=== PATIENT | female | born 1945 | race Caucasian/White ===

== ENCOUNTER → 2016-09-11 | Outpatient (REF) ==
[~2016-09-11] MED LIST: ALPR2TAB3 PO; ASPI81TA83 OR; ATOR40TA PO; BUPR10TASR PO; CLON0.5T OR; CLON0.5T PO; COGE1INJ OR; GLUC1000 OR; KLON0.5T PO; LAMI25TA OR; LASI40TA OR; LEVO137T2 PO; LISI10TA4 OR; LITH150C PO; LITH300C PO; LITH300T2 OR; MIRT15TA3 PO; QUET30XR PO; SERO1TAB3 PO; SERO200T OR; SERO50TA PO; SIMV80TA OR; SPIR25TA2 PO; SYNT125T OR; TRAZ150T OR; VIST25CA PO; ZYPR5TAB2 PO
== END ==
LOC: M LAB REF 17:26
DX: Z79.899 Other long term (current) drug therapy (principal)

== ENCOUNTER → 2017-04-27 | Outpatient (REF) ==
[~2017-04-27] MED LIST changes: -ATOR40TA PO; +ATOR40TA75 PO
== END ==
LOC: M LAB LCGH 19:07
PROVIDERS: ATTEND Emergency Medicine
DX: Z79.899 Other long term (current) drug therapy (principal)

== ENCOUNTER → 2017-05-25 | Outpatient (REF) | LOC: M LAB REF 11:09 | DX: Z51.81 Encounter for therapeutic drug level monitoring (principal) ==

== ENCOUNTER 2017-08-15 12:13 | Emergency (ER) | payer OTHER ==
[2017-08-15 13:06] LABS: HEMATOCRIT 43.9 % (36.0-47.0); HEMOGLOBIN 14.1 g/dl (12.0-16.0); MEAN CORPUSCULAR HEMOGLOBIN 29.4 pg (27.0-33.0); MEAN CORPUSCULAR HGB CONC 32.1 g/dl (32.0-36.5); MEAN CORPUSCULAR VOLUME 91.6 fl (80.0-96.0); PLATELET COUNT, AUTOMATED 323 10^3/uL (150-450); RED BLOOD COUNT 4.79 10^6/uL (4.00-5.40); RED CELL DISTRIBUTION WIDTH 13.2 % (11.5-14.5)
[2017-08-15 13:44] LABS: LITHIUM LEVEL 0.91 MEQ/L (0.60-1.20)
[2017-08-15 13:51] LABS: ACETAMINOPHEN LEVEL < 2.0 UG/ML (10.0-30.0); ALBUMIN/GLOBULIN RATIO 1.21 (1.00-1.93); ALKALINE PHOSPHATASE 115 U/L (45-117); ALT/SGPT 25 U/L (12-78); ANION GAP 7 MEQ/L (8-16); AST/SGOT 18 U/L (7-37); BILIRUBIN,DIRECT < 0.1 MG/DL (0.0-0.2); BILIRUBIN,TOTAL 0.3 MG/DL (0.2-1.0); BLOOD UREA NITROGEN 12 MG/DL (7-18); CALCIUM LEVEL 9.8 MG/DL (8.8-10.2); CARBON DIOXIDE LEVEL 27 MEQ/L (21-32); CHLORIDE LEVEL 106 MEQ/L (98-107); CREATININE FOR GFR 0.57 MG/DL (0.55-1.30); ETHYL ALCOHOL (ETHANOL) 0.003 % (0.000-0.010); GLOMERULAR FILTRATION RATE > 60.0 (>39); GLUCOSE, FASTING 100 MG/DL (70-100); POTASSIUM SERUM 4.3 MEQ/L (3.5-5.1); SALICYLATE LEVEL < 1.7 MG/DL (5.0-30.0); SODIUM LEVEL 140 MEQ/L (136-145); TOTAL PROTEIN 7.3 GM/DL (6.4-8.2)
[2017-08-15 14:41] LABS: AMPHETAMINES LEVEL URINE NEGATIVE (NEGATIVE); BARBITURATES URINE NEGATIVE (NEGATIVE); BENZODIAZEPINES URINE NEGATIVE (NEGATIVE); CANNABINOIDS URINE NEGATIVE (NEGATIVE); COCAINE METABOLITE URINE NEGATIVE (NEGATIVE); METHADONE URINE NEGATIVE (NEGATIVE); OPIATES URINE NEGATIVE (NEGATIVE); PHENCYCLIDINE URINE NEGATIVE (NEGATIVE)
== END 2017-08-15 16:53 | disposition home or self-care (01) ==
LOC: M ED 12:13
DX: F31.9 Bipolar disorder, unspecified (principal); E78.9 Disorder of lipoprotein metabolism, unspecified; E07.9 Disorder of thyroid, unspecified; Z79.899 Other long term (current) drug therapy; Z79.82 Long term (current) use of aspirin
CPT/HCPCS: G0480

== ENCOUNTER 2018-12-10 10:42 | Emergency (ER) | payer MEDICARE, OTHER ==
[~2018-12-10] VITALS: Ht 160 cm; Wt 98.2 kg
[~2018-12-10 10:42] MED LIST changes: +ASPI81TA85 PO; +BENZ-52 PO; -CLON0.5T PO; +CLON0.5T8 PO; +FLUOROCORTISONE; +GABA-845 PO; +LATU80TA PO; +LEVO125T4 PO; -QUET30XR PO; +SERO300T20 PO; +SPIR-10 PO; -SPIR25TA2 PO; +TRAZ-163 PO; +TYLE325T5 PO
[2018-12-10] MEDS ORDERED: MIDO5TA PO (11:08)
[2018-12-10] MEDS ORDERED: CALC-218 PO (11:08)
[2018-12-10] MEDS ORDERED: ZIPR20CA13 PO (11:08)
[2018-12-10] MEDS ORDERED: LAMO150T2 PO (11:08)
[2018-12-10 11:54] LABS: HEMATOCRIT 46.3 % (36.0-47.0); HEMOGLOBIN 14.6 g/dl (12.0-15.5); MEAN CORPUSCULAR HEMOGLOBIN 29.9 pg (27.0-33.0); MEAN CORPUSCULAR HGB CONC 31.5 g/dl (32.0-36.5); MEAN CORPUSCULAR VOLUME 94.9 fl (80.0-96.0); PLATELET COUNT, AUTOMATED 270 10^3/uL (150-450); RED BLOOD COUNT 4.88 10^6/uL (4.00-5.40); WHITE BLOOD COUNT 11.7 10^3/uL (4.0-10.0)
[2018-12-10 12:33] LABS: ACETAMINOPHEN LEVEL < 2.0 UG/ML (10.0-30.0); ALBUMIN 3.2 GM/DL (3.2-5.2); ALT/SGPT 16 U/L (12-78); BILIRUBIN,DIRECT 0.1 MG/DL (0.0-0.2); BILIRUBIN,TOTAL 0.3 MG/DL (0.2-1.0); BLOOD UREA NITROGEN 14 MG/DL (7-18); CALCIUM LEVEL 9.1 MG/DL (8.8-10.2); CARBON DIOXIDE LEVEL 30 MEQ/L (21-32); CHLORIDE LEVEL 107 MEQ/L (98-107); CREATININE FOR GFR 0.67 MG/DL (0.55-1.30); ETHYL ALCOHOL (ETHANOL) < 0.003 % (0.000-0.010); GLOMERULAR FILTRATION RATE > 60.0 (>39); GLUCOSE, FASTING 135 MG/DL (70-100); POTASSIUM SERUM 3.8 MEQ/L (3.5-5.1); SALICYLATE LEVEL < 1.7 MG/DL (5.0-30.0); SODIUM LEVEL 142 MEQ/L (136-145); THYROID STIMULATING HORMONE 0.741 uIU/ML (0.358-3.740); TOTAL PROTEIN 6.1 GM/DL (6.4-8.2)
[2018-12-10 13:18] LABS: LITHIUM LEVEL 1.34 MEQ/L (0.60-1.20)
[2018-12-10 13:21] LABS: AMPHETAMINES LEVEL URINE NEGATIVE (NEGATIVE); BARBITURATES URINE NEGATIVE (NEGATIVE); BENZODIAZEPINES URINE NEGATIVE (NEGATIVE); CANNABINOIDS URINE NEGATIVE (NEGATIVE); COCAINE METABOLITE URINE NEGATIVE (NEGATIVE); METHADONE URINE NEGATIVE (NEGATIVE); OPIATES URINE NEGATIVE (NEGATIVE); PHENCYCLIDINE URINE NEGATIVE (NEGATIVE)
[2018-12-10] MEDS ORDERED: CALCCAP4 PO (16:53)
[2018-12-10] MEDS ORDERED: BENZ0.5T PO (16:53)
[2018-12-10] MEDS ORDERED: ACET-897 PO (16:53)
[2018-12-10] MEDS ORDERED: ATOR1TAB21 PO (16:53)
[2018-12-10 17:34] VITALS: BP 144/78
--- NOTE | 2018-12-11 16:10 | ECGEPIP ---
[facility] - ED Test Date: 2018-12-10 Pat Name: ESMER HINDS Department: Room: - Gender: Female Customer Development Representative: johnathon : 1945 Requested By: MARIA DOLORES Bennett Order Number: [id number] Reading MD: Lizbeth Phelan Measurements Intervals [place] Rate: 53 P: 56 AL: 182 QRS: QRSD: 104 T: 65 QT: 423 QTc: 398 Interpretive Statements SINUS BRADYCARDIA MARKED LEFT AXIS DEVIATION PROBABLE SEPTAL MYOCARDIAL INFARCTION, PROBABLY OLD NO PRIOR FOR COMPARISON Electronically Signed on 12-11-2018 16:09:50 EDT by Lizbeth Phelan
== END 2018-12-10 17:35 | disposition home or self-care (01) ==
LOC: M ED 10:42
DX: F32.9 Major depressive disorder, single episode, unspecified (principal); R79.89 Other specified abnormal findings of blood chemistry; R00.1 Bradycardia, unspecified; E89.0 Postprocedural hypothyroidism; E78.9 Disorder of lipoprotein metabolism, unspecified; Z79.899 Other long term (current) drug therapy; Z79.82 Long term (current) use of aspirin
CPT/HCPCS: 36415; 80048; 80076; 80178; 80307; 81001; 84443; 85027; 87086; 93005; 99284; G0480

== ENCOUNTER 2019-01-08 05:52 | Day surgery (SDC) | payer MEDICARE ==
[~2019-01-08] VITALS: Ht 157.5 cm; Wt 94.8 kg
[~2019-01-08 05:52] MED LIST changes: +ACET-897 PO; +ATOR1TAB21 PO; +BENZ0.5T23 PO; +CALC-218 PO; +CALCCAP4 PO; +LAMO100T PO; +LAMO150T2 PO; +MIDO5TA PO; +ZIPR20CA13 PO
[2019-01-08] MEDS ORDERED: ACETAMINOPHEN 325 MG TAB PO PRN (06:00)
[2019-01-08] MEDS ORDERED: POVIDONE-IODINE 5% OPHTH PREP SOL 30ML As Ordered ONE (06:40)
[2019-01-08] MEDS ORDERED: LIDOCAINE 1% SDV 5 ML VIAL As Ordered ONE (06:41)
[2019-01-08] MEDS ORDERED: BALANCED SALT IRRIGATION SOLUTION 500ML BAG (FOR OR EYE MACHINE) As Ordered ONE (06:41)
[2019-01-08] MEDS ORDERED: HEALON DUET PRO(HEALON 10MG/ML 0.55ML & HEALON ENDOCOAT 30MG/ML 0.85ML) As Ordered ONE (06:42)
[2019-01-08] MEDS ORDERED: CEFUROXIME 1MG/0.1ML INTRACAMERAL INJ As Ordered ONE (06:42)
[2019-01-08] MEDS ORDERED: CYCLOPENTOLATE 2% OPHTH SOLN 2ML BTL OD ONE (07:00)
[2019-01-08] MEDS ORDERED: PHENYLEPHRINE 2.5% OPHTH SOL 2ML OD ONE (07:00)
[2019-01-08] MEDS ORDERED: PHENYLEPHRINE HCL 10 % OPHTH. SOL 5ML OD PRN (07:00)
[2019-01-08] MEDS ORDERED: LIDOCAINE 3.5 % 1ML OPHTH TOPICAL GEL OU ONE (07:00)
[2019-01-08] MEDS ORDERED: TROPICAMIDE 1% OPHTH SOLN 2ML OD ONE (07:00)
[2019-01-08] MEDS ORDERED: OFLOXACIN 0.3 % (OCUFLOX) OPTH SOL 5ML OD ONE (07:00)
[2019-01-08] MEDS ORDERED: PROPARACAINE 0.5% OPHTH SOL 15ML OD PRN (07:01)
[2019-01-08] MEDS ORDERED: MIDAZOLAM INJ 2 MG/2 ML VIAL (J2250) As Ordered ONE (07:44)
[2019-01-08] MEDS ORDERED: fentaNYL 100 MCG/2 ML INJECTION (J3010) As Ordered ONE (07:44)
[2019-01-08] MEDS ORDERED: TRIMETHOBENZAMIDE 300 MG CAP PO PRN (08:15)
[2019-01-08] MEDS ORDERED: AcetaZOLAMIDE 500 MG ER CAP PO ONE (08:15)
[2019-01-08] MEDS ORDERED: KETOROLAC 0.5% OPHTH SOLN OD ONE (08:15)
[2019-01-08 08:40] VITALS: BP 136/66
--- NOTE | 2019-01-08 15:16 | RO ---
DATE OF PROCEDURE: 01/08/2019 PREPROCEDURE DIAGNOSIS: Age-related nuclear cataract right eye. POSTPROCEDURE DIAGNOSIS: Age-related nuclear cataract right eye. PROCEDURE: Phacoemulsification and posterior chamber intraocular lens implantation. The lens used was AU00T0, 16.0 diopter. SURGEON: Janice Bush MD SHIFT MECHANIC: ANESTHESIA: Topical with sedation. DESCRIPTION OF PROCEDURE: The patient was prepped and draped in the usual fashion. A lid speculum was placed between the lids. The eye was fixated. A stab incision was made to the anterior chamber, and 1% nonpreserved lidocaine was instilled. Then, viscoelastic was instilled. The eye was re-fixated. A 2.75 mm sapphire keratome was used to make a clear corneal temporal limbal incision. Capsulorrhexis was begun with a 30-gauge bent needle and then carried out in a circular fashion with capsulorrhexis forceps. The lens was hydrodissected, and then the phacoemulsification unit was used to make a groove in the nucleus in two meridians. The nucleus was then cracked into four quadrants. Each quadrant was removed with the phacoemulsification unit. Any remaining cortex was removed with the irrigation and aspiration (I and A) unit. Capsular bag was refilled with viscoelastic. A posterior chamber intraocular lens was placed in the capsular bag without difficulty. Any remaining viscoelastic was removed with the I and A unit. The wound was hydrated, and Miochol and cefuroxime were instilled into the anterior chamber. The patient tolerated the procedure well and went to the recovery room in stable condition.
== END 2019-01-08 08:50 | disposition home or self-care (01) ==
LOC: M SDC 05:52
PROVIDERS: ATTEND Ophthalmology
DX: H25.11 Age-related nuclear cataract, right eye (principal); E03.9 Hypothyroidism, unspecified; E78.00 Pure hypercholesterolemia, unspecified; F31.9 Bipolar disorder, unspecified; Z79.899 Other long term (current) drug therapy
CPT/HCPCS: 66984; 92015; J2250; J3010; V2632

== ENCOUNTER 2019-01-29 11:34 | Day surgery (SDC) | payer MEDICARE ==
[~2019-01-29] VITALS: Ht 157.5 cm; Wt 95.3 kg
[~2019-01-29 11:34] MED LIST changes: +ACETAMINOPHEN 325 MG TAB PO PRN; +BALANCED SALT IRRIGATION SOLUTION 500ML BAG (FOR OR EYE MACHINE) As Ordered ONE; +CEFUROXIME 1MG/0.1ML INTRACAMERAL INJ As Ordered ONE; +CYCLOPENTOLATE 2% OPHTH SOLN 2ML BTL OS ONE; +HEALON DUET PRO(HEALON 10MG/ML 0.55ML & HEALON ENDOCOAT 30MG/ML 0.85ML) As Ordered ONE; +LIDOCAINE 1% SDV 5 ML VIAL As Ordered ONE; +LIDOCAINE 3.5 % 1ML OPHTH TOPICAL GEL OU ONE; +MIDAZOLAM INJ 2 MG/2 ML VIAL (J2250) As Ordered ONE; +OFLOXACIN 0.3 % (OCUFLOX) OPTH SOL 5ML OS ONE; +PHENYLEPHRINE 2.5% OPHTH SOL 2ML OS ONE; +PHENYLEPHRINE HCL 10 % OPHTH. SOL 5ML OS PRN; +POVIDONE-IODINE 5% OPHTH PREP SOL 30ML As Ordered ONE; +PROPARACAINE 0.5% OPHTH SOL 15ML OS PRN; +TROPICAMIDE 1% OPHTH SOLN 2ML OS ONE; +fentaNYL 100 MCG/2 ML INJECTION (J3010) As Ordered ONE
[2019-01-29] MEDS ORDERED: AcetaZOLAMIDE 500 MG ER CAP As Ordered ONE (12:41)
[2019-01-29 13:00] VITALS: BP 162/79
--- NOTE | 2019-01-29 13:14 | RO ---
DATE OF PROCEDURE: 01/29/2019 PREPROCEDURE DIAGNOSIS: Age-related nuclear cataract left eye. POSTPROCEDURE DIAGNOSIS: Age-related nuclear cataract left eye. PROCEDURE: Phacoemulsification and posterior chamber intraocular lens implantation left eye. The lens used was AU00T0, 14.5 diopter. SURGEON: Janice Bush MD SALES MANAGER: ANESTHESIA: Topical with sedation. DESCRIPTION OF PROCEDURE: The patient was prepped and draped in the usual fashion. A lid speculum was placed between the lids. The eye was fixated. A stab incision was made to the anterior chamber, and 1% nonpreserved lidocaine was instilled. Then, viscoelastic was instilled. The eye was re-fixated. A 2.75 mm sapphire keratome was used to make a clear corneal temporal limbal incision. Capsulorrhexis was begun with a 30-gauge bent needle and then carried out in a circular fashion with capsulorrhexis forceps. The lens was hydrodissected, and then the phacoemulsification unit was used to make a groove in the nucleus in two meridians. The nucleus was then cracked into four quadrants. Each quadrant was removed with the phacoemulsification unit. Any remaining cortex was removed with the irrigation and aspiration (I and A) unit. Capsular bag was refilled with viscoelastic. A posterior chamber intraocular lens was placed in the capsular bag without difficulty. Any remaining viscoelastic was removed with the I and A unit. The wound was hydrated, and Miochol and cefuroxime were instilled into the anterior chamber. The patient tolerated the procedure well and went to the recovery room in stable condition.
[2019-01-29] MEDS ORDERED: ONDANSETRON 4MG/2ML VIAL (J2405) IV PRN (13:15)
[2019-01-29] MEDS ORDERED: KETOROLAC 0.5% OPHTH SOLN OS ONE (13:15)
[2019-01-29] MEDS ORDERED: TRIMETHOBENZAMIDE 300 MG CAP PO PRN (13:15)
[2019-01-29] MEDS ORDERED: AcetaZOLAMIDE 500 MG ER CAP PO ONE (13:15)
== END 2019-01-29 13:25 | disposition home or self-care (01) ==
LOC: M SDC 11:34
PROVIDERS: ATTEND Ophthalmology
DX: H25.12 Age-related nuclear cataract, left eye (principal); E78.5 Hyperlipidemia, unspecified; E03.9 Hypothyroidism, unspecified; Z79.899 Other long term (current) drug therapy; F31.9 Bipolar disorder, unspecified
CPT/HCPCS: 66984; 92015; J2250; J3010; V2632

== ENCOUNTER → 2022-04-23 | Outpatient (REF) ==
[~2022-04-23] MED LIST changes: +ACET325C5 PO; -ACETAMINOPHEN 325 MG TAB PO PRN; -ASPI81TA85 PO; +ASPI81TA86 PO; +ATIV1TAB10; -BALANCED SALT IRRIGATION SOLUTION 500ML BAG (FOR OR EYE MACHINE) As Ordered ONE; -CEFUROXIME 1MG/0.1ML INTRACAMERAL INJ As Ordered ONE; +CLON0.5T2 PO; -CLON0.5T8 PO; +COUG1LOZ8 PO; -CYCLOPENTOLATE 2% OPHTH SOLN 2ML BTL OS ONE; +GABA-283 PO; -GABA-845 PO; -HEALON DUET PRO(HEALON 10MG/ML 0.55ML & HEALON ENDOCOAT 30MG/ML 0.85ML) As Ordered ONE; +INGR80CA; -LAMO100T PO; +LAMO100T3 PO; -LAMO150T2 PO; +LAMO150T3 PO; -LATU80TA PO; +LATU80TA2 PO; -LIDOCAINE 1% SDV 5 ML VIAL As Ordered ONE; -LIDOCAINE 3.5 % 1ML OPHTH TOPICAL GEL OU ONE; +LOPE-39 PO; +MAAL10003 PO; -MIDAZOLAM INJ 2 MG/2 ML VIAL (J2250) As Ordered ONE; +MIRA3350 PO; +NYST1POW9; -OFLOXACIN 0.3 % (OCUFLOX) OPTH SOL 5ML OS ONE; -PHENYLEPHRINE 2.5% OPHTH SOL 2ML OS ONE; -PHENYLEPHRINE HCL 10 % OPHTH. SOL 5ML OS PRN; -POVIDONE-IODINE 5% OPHTH PREP SOL 30ML As Ordered ONE; -PROPARACAINE 0.5% OPHTH SOL 15ML OS PRN; +ROBI1LIQ9 PO; +SERO200T PO; -TRAZ-163 PO; +TRAZ-257 PO; -TROPICAMIDE 1% OPHTH SOLN 2ML OS ONE; -fentaNYL 100 MCG/2 ML INJECTION (J3010) As Ordered ONE
== END ==
LOC: M LAB REF 18:23
DX: Z79.899 Other long term (current) drug therapy (principal)

== ENCOUNTER 2022-12-20 20:52 | Inpatient (IN) | payer MEDICARE ==
[~2022-12-20] VITALS: Ht 165.1 cm; Wt 77.7 kg
[~2022-12-20 20:52] MED LIST changes: -ATIV1TAB10; +ATIV1TAB10 PO; -BENZ-52 PO; +BENZ0.5T2 PO; -BENZ0.5T23 PO; +BENZ1TAB5 PO
[2022-12-21 01:05] LABS: BASO % 0.4 % (0.0-1.0); EOS # 0.4 10^3/uL (0.0-0.5); EOS % 3.5 % (0.0-3.0); HEMATOCRIT 41.1 % (36.0-47.0); HEMOGLOBIN 12.8 g/dl (12.0-15.5); LYMPH # 2.3 10^3/uL (1.5-5.0); LYMPH % 22.7 % (24.0-44.0); MEAN CORPUSCULAR HEMOGLOBIN 29.9 pg (27.0-33.0); MEAN CORPUSCULAR HGB CONC 31.1 g/dl (32.0-36.5); MONO # 0.6 10^3/uL (0.0-0.8); MONO % 5.5 % (2.0-8.0); NEUTROPHILS # 6.8 10^3/uL (1.5-8.5); NEUTROPHILS % 67.4 % (36.0-66.0); PLATELET COUNT, AUTOMATED 288 10^3/uL (150-450); RED BLOOD COUNT 4.28 10^6/uL (4.00-5.40)
[2022-12-21 01:15] LABS: ALBUMIN 3.2 G/DL (3.2-5.2); ALKALINE PHOSPHATASE 109 U/L (46-116); ALT/SGPT 16 U/L (7.0-40); AST/SGOT 9 U/L (<34); BILIRUBIN,DIRECT 0.1 MG/DL (<0.4); BILIRUBIN,TOTAL 0.4 MG/DL (0.3-1.2); BLOOD UREA NITROGEN 16 MG/DL (9-23); CALCIUM LEVEL 10.1 MG/DL (8.3-10.6); CARBON DIOXIDE LEVEL 30 MMOL/L (20-31); CHLORIDE LEVEL 109 MMOL/L (98-107); CREATININE FOR GFR 0.63 MG/DL (0.55-1.30); GLOMERULAR FILTRATION RATE > 60.0 (>39); GLUCOSE, FASTING 102 MG/DL (74-106); SODIUM LEVEL 142 MMOL/L (136-145); TOTAL PROTEIN 5.2 G/DL (5.7-8.2)
[2022-12-21 01:18] LABS: THYROID STIMULATING HORMONE 2.494 uIU/ML (0.55-4.78)
[2022-12-21 01:20] LABS: RSV AMPLIFICATION NEGATIVE (NEGATIVE)
[2022-12-21] MEDS ORDERED: MED REC IN PROGRESS XX SCH (09:10)
[2022-12-21] MEDS ORDERED: GABA-1171 PO (09:46)
[2022-12-21] MEDS ORDERED: LITH300T2 PO ×2 (09:46)
[2022-12-21] MEDS ORDERED: OLAN1TAB16 PO (09:46)
[2022-12-21] MEDS ORDERED: AMLO1TAB24 PO (09:46)
[2022-12-21] MEDS ORDERED: ASPI81CH48 PO (09:46)
[2022-12-21] MEDS ORDERED: ARIP1TAB10 PO (09:46)
[2022-12-21] MEDS ORDERED: ERGO500029 PO (09:46)
[2022-12-21] MEDS ORDERED: METH-855 PO (09:46)
[2022-12-21] MEDS ORDERED: ALBU8.5H INH (09:46)
[2022-12-21] MEDS ORDERED: SENO8.6T10 PO (09:47)
[2022-12-21] MEDS ORDERED: ASCO500T PO (09:47)
[2022-12-21] MEDS ORDERED: HOME MED LIST COMPLETE! XX SCH (10:35)
[2022-12-21 12:39] LABS: AMPHETAMINES LEVEL URINE NEGATIVE (NEGATIVE); BARBITURATES URINE NEGATIVE (NEGATIVE); BENZODIAZEPINES URINE NEGATIVE (NEGATIVE); COCAINE METABOLITE URINE NEGATIVE (NEGATIVE); PHENCYCLIDINE URINE NEGATIVE (NEGATIVE)
[2022-12-21 12:40] LABS: CANNABINOIDS URINE NEGATIVE (NEGATIVE); ETHYL ALCOHOL (ETHANOL) 0.004 % (0.000-0.010); METHADONE URINE NEGATIVE (NEGATIVE); OPIATES URINE NEGATIVE (NEGATIVE)
[2022-12-21 12:42] LABS: ACETAMINOPHEN LEVEL < 2.0 UG/ML (10.0-20.0); SALICYLATE LEVEL < 3.0 MG/DL (<30)
[2022-12-21 12:43] LABS: LITHIUM LEVEL 0.42 MMOL/L (0.60-1.20)
[2022-12-21] MEDS ORDERED: MAALOX 30 ML SUSP *UDC PO PRN (15:55)
[2022-12-21] MEDS ORDERED: traZODone 50 MG TAB PO PRN (15:55)
[2022-12-21] MEDS ORDERED: ALBUTEROL 90 MCG/ACT 8GM HFA INHALER INH PRN (15:55)
[2022-12-21] MEDS ORDERED: diphenhydrAMINE 25MG CAP PO PRN (15:55)
[2022-12-21] MEDS ORDERED: MOM 30ML SUSPENSION UDC PO PRN (15:55)
[2022-12-21] MEDS ORDERED: MIRALAX *UNIT DOSE* 17GM PACKET PO PRN (15:55)
[2022-12-21] MEDS: LORazepam 0.5 MG TAB PO SCH ×2 (17:36→21:35)
[2022-12-21] MEDS ORDERED: LITHIUM CARBONATE 150 MG CAP PO SCH (21:00)
[2022-12-21] MEDS: GABAPENTIN 100 MG CAP PO SCH (21:35)
[2022-12-21] MEDS: lamoTRIgine 100MG TAB PO SCH (21:36)
[2022-12-21] MEDS: SENOKOT S TAB PO SCH (21:36)
[2022-12-21] MEDS: ASCORBIC ACID 500 MG TAB PO SCH (21:36)
[2022-12-21] MEDS: ATORVASTATIN 20 MG TAB PO SCH (21:36)
[2022-12-21] MEDS: QUEtiapine FUMARATE 200 MG TAB PO SCH (21:36)
[2022-12-21] MEDS: CALCIUM/VITAMIN D 500 MG TAB PO SCH (21:36)
[2022-12-22] MEDS: LEVOTHYROXINE 125MCG TABLET (0.125MG) PO SCH (05:34)
[2022-12-22 06:17] VITALS: BP 147/68; TEMP 97.1; O2SAT 95
[2022-12-22] MEDS ORDERED: LITHIUM CARBONATE 300 MG CAP PO SCH (09:00)
[2022-12-22] MEDS: ASPIRIN 81MG CHEW TABLET PO SCH (10:15)
[2022-12-22] MEDS: OLANZapine 5 MG TAB PO SCH (10:15)
[2022-12-22] MEDS: CALCIUM/VITAMIN D 500 MG TAB PO SCH ×2 (10:15→20:34)
[2022-12-22] MEDS: GABAPENTIN 100 MG CAP PO SCH ×2 (10:16→20:34)
[2022-12-22] MEDS: ASCORBIC ACID 500 MG TAB PO SCH ×2 (10:16→20:34)
[2022-12-22] MEDS: amLODIPine 5 MG TAB PO SCH (10:17)
[2022-12-22] MEDS: LORazepam 0.5 MG TAB PO SCH ×3 (10:17→20:35)
[2022-12-22] MEDS: SENOKOT S TAB PO SCH ×2 (10:18→20:34)
[2022-12-22] MEDS: lamoTRIgine 100MG TAB PO SCH ×2 (10:18→20:34)
[2022-12-22] MEDS: ARIPiprazole 15 MG TAB (AbiLIFY) PO SCH (10:36)
[2022-12-22] MEDS: ACETAMINOPHEN TAB 650MG DOSE (2X325MG) PO PRN ×2 (11:21→23:12)
[2022-12-22] MEDS: NYSTATIN 100,000 UNITS/GM TOPICAL PWD 15GM TOP SCH ×2 (13:22→20:34)
[2022-12-22 18:00] VITALS: BP_SYST 132; BP_SYST 141; BP_DIAS 65; BP_DIAS 77; TEMP 96.7; TEMP 97.5
[2022-12-22] MEDS: QUEtiapine FUMARATE 200 MG TAB PO SCH (20:34)
[2022-12-22] MEDS: ATORVASTATIN 20 MG TAB PO SCH (20:35)
[2022-12-22] MEDS: METHENAMINE HIPPURATE 1 GM PO SCH (20:35)
[2022-12-22] MEDS ORDERED: LITHIUM CARBONATE 300 MG CAP PO ONE (21:00)
[2022-12-23] MEDS: LEVOTHYROXINE 125MCG TABLET (0.125MG) PO SCH (06:43)
[2022-12-23] MEDS: ASPIRIN 81MG CHEW TABLET PO SCH (09:58)
[2022-12-23] MEDS: GABAPENTIN 100 MG CAP PO SCH ×2 (09:58→20:34)
[2022-12-23] MEDS: CALCIUM/VITAMIN D 500 MG TAB PO SCH ×2 (09:59→20:33)
[2022-12-23] MEDS: amLODIPine 5 MG TAB PO SCH (09:59)
[2022-12-23] MEDS: METHENAMINE HIPPURATE 1 GM PO SCH ×2 (09:59→20:34)
[2022-12-23] MEDS: LORazepam 0.5 MG TAB PO SCH ×3 (09:59→20:34)
[2022-12-23] MEDS: SENOKOT S TAB PO SCH ×2 (09:59→20:33)
[2022-12-23] MEDS: ARIPiprazole 15 MG TAB (AbiLIFY) PO SCH (09:59)
[2022-12-23] MEDS: ASCORBIC ACID 500 MG TAB PO SCH ×2 (09:59→20:33)
[2022-12-23] MEDS: OLANZapine 5 MG TAB PO SCH (09:59)
[2022-12-23] MEDS: lamoTRIgine 100MG TAB PO SCH ×2 (09:59→20:33)
[2022-12-23] MEDS: NYSTATIN 100,000 UNITS/GM TOPICAL PWD 15GM TOP SCH ×2 (10:00→20:34)
[2022-12-23 16:57] VITALS: BP 130/60; TEMP 98; O2SAT 94
[2022-12-23] MEDS: ATORVASTATIN 20 MG TAB PO SCH (20:34)
[2022-12-23] MEDS: QUEtiapine FUMARATE 200 MG TAB PO SCH (20:34)
[2022-12-23] MEDS: LITHIUM CARBONATE 600MG CAP PO SCH (20:34)
[2022-12-24] MEDS: LEVOTHYROXINE 125MCG TABLET (0.125MG) PO SCH (06:15)
[2022-12-24 06:44] VITALS: BP 121/56; TEMP 97.5; O2SAT 96
[2022-12-24] MEDS ORDERED: VITAMIN D 50,000 UNITS CAPSULE (ERGOCALCIFEROL 1.25MG) PO SCH (09:00)
[2022-12-24] MEDS: OLANZapine 5 MG TAB PO SCH (09:47)
[2022-12-24] MEDS: LORazepam 0.5 MG TAB PO SCH ×3 (09:47→22:11)
[2022-12-24] MEDS: GABAPENTIN 100 MG CAP PO SCH ×2 (09:47→22:10)
[2022-12-24] MEDS: SENOKOT S TAB PO SCH ×2 (09:47→22:10)
[2022-12-24] MEDS: ASPIRIN 81MG CHEW TABLET PO SCH (09:47)
[2022-12-24] MEDS: METHENAMINE HIPPURATE 1 GM PO SCH ×2 (09:47→22:09)
[2022-12-24] MEDS: ARIPiprazole 15 MG TAB (AbiLIFY) PO SCH (09:47)
[2022-12-24] MEDS: CALCIUM/VITAMIN D 500 MG TAB PO SCH ×2 (09:47→22:10)
[2022-12-24] MEDS: NYSTATIN 100,000 UNITS/GM TOPICAL PWD 15GM TOP SCH ×2 (09:48→22:09)
[2022-12-24] MEDS: ASCORBIC ACID 500 MG TAB PO SCH ×2 (09:48→22:10)
[2022-12-24] MEDS: lamoTRIgine 100MG TAB PO SCH ×2 (09:48→22:10)
[2022-12-24] MEDS: amLODIPine 5 MG TAB PO SCH (10:02)
[2022-12-24] MEDS: ACETAMINOPHEN TAB 650MG DOSE (2X325MG) PO PRN (15:38)
[2022-12-24 16:25] VITALS: BP 128/61; TEMP 98.6; O2SAT 96
[2022-12-24] MEDS: LITHIUM CARBONATE 600MG CAP PO SCH (22:10)
[2022-12-24] MEDS: QUEtiapine FUMARATE 200 MG TAB PO SCH (22:10)
[2022-12-24] MEDS: ATORVASTATIN 20 MG TAB PO SCH (22:11)
[2022-12-25] MEDS: LEVOTHYROXINE 125MCG TABLET (0.125MG) PO SCH (05:33)
[2022-12-25 06:44] VITALS: BP 150/80; TEMP 96.9; O2SAT 92
[2022-12-25] MEDS: LORazepam 0.5 MG TAB PO SCH ×3 (09:29→20:39)
[2022-12-25] MEDS: GABAPENTIN 100 MG CAP PO SCH ×2 (09:29→20:39)
[2022-12-25] MEDS: ASPIRIN 81MG CHEW TABLET PO SCH (09:29)
[2022-12-25] MEDS: lamoTRIgine 100MG TAB PO SCH ×2 (09:29→20:40)
[2022-12-25] MEDS: ARIPiprazole 15 MG TAB (AbiLIFY) PO SCH (09:29)
[2022-12-25] MEDS: SENOKOT S TAB PO SCH ×2 (09:30→20:39)
[2022-12-25] MEDS: CALCIUM/VITAMIN D 500 MG TAB PO SCH ×2 (09:30→20:40)
[2022-12-25] MEDS: ASCORBIC ACID 500 MG TAB PO SCH ×2 (09:30→20:39)
[2022-12-25] MEDS: amLODIPine 5 MG TAB PO SCH (09:30)
[2022-12-25] MEDS: OLANZapine 5 MG TAB PO SCH (09:30)
[2022-12-25] MEDS: METHENAMINE HIPPURATE 1 GM PO SCH ×2 (09:31→20:40)
[2022-12-25] MEDS: NYSTATIN 100,000 UNITS/GM TOPICAL PWD 15GM TOP SCH ×2 (09:32→20:57)
[2022-12-25 18:00] VITALS: BP 147/74; TEMP 98.9
[2022-12-25] MEDS: QUEtiapine FUMARATE 200 MG TAB PO SCH (20:39)
[2022-12-25] MEDS: ATORVASTATIN 20 MG TAB PO SCH (20:39)
[2022-12-25] MEDS: LITHIUM CARBONATE 600MG CAP PO SCH (20:39)
[2022-12-26] MEDS: LEVOTHYROXINE 125MCG TABLET (0.125MG) PO SCH (06:02)
[2022-12-26 06:28] VITALS: BP 148/66; TEMP 98.7; O2SAT 91
[2022-12-26] MEDS: ACETAMINOPHEN TAB 650MG DOSE (2X325MG) PO PRN (06:53)
[2022-12-26] MEDS: NYSTATIN 100,000 UNITS/GM TOPICAL PWD 15GM TOP SCH ×2 (08:36→20:22)
[2022-12-26] MEDS: OLANZapine 5 MG TAB PO SCH (10:06)
[2022-12-26] MEDS: lamoTRIgine 100MG TAB PO SCH ×2 (10:06→20:22)
[2022-12-26] MEDS: ASPIRIN 81MG CHEW TABLET PO SCH (10:06)
[2022-12-26] MEDS: ARIPiprazole 15 MG TAB (AbiLIFY) PO SCH (10:06)
[2022-12-26] MEDS: ASCORBIC ACID 500 MG TAB PO SCH ×2 (10:06→20:22)
[2022-12-26] MEDS: LORazepam 0.5 MG TAB PO SCH ×3 (10:07→20:22)
[2022-12-26] MEDS: GABAPENTIN 100 MG CAP PO SCH ×2 (10:07→20:22)
[2022-12-26] MEDS: SENOKOT S TAB PO SCH ×2 (10:08→20:22)
[2022-12-26] MEDS: amLODIPine 5 MG TAB PO SCH (10:08)
[2022-12-26] MEDS: CALCIUM/VITAMIN D 500 MG TAB PO SCH ×2 (10:08→20:21)
[2022-12-26] MEDS: METHENAMINE HIPPURATE 1 GM PO SCH ×2 (10:09→20:22)
[2022-12-26 17:57] VITALS: BP 122/71; TEMP 96.3
[2022-12-26] MEDS: LITHIUM CARBONATE 600MG CAP PO SCH (20:22)
[2022-12-26] MEDS: QUEtiapine FUMARATE 200 MG TAB PO SCH (20:22)
[2022-12-26] MEDS: ATORVASTATIN 20 MG TAB PO SCH (20:22)
[2022-12-27] VITALS (9 sets, daily range): BP systolic 131–137; BP diastolic 62–71; TEMP 97.8; O2SAT 89–94
[2022-12-27] MEDS: LEVOTHYROXINE 125MCG TABLET (0.125MG) PO SCH (05:31)
[2022-12-27] MEDS ORDERED: LITH600C PO (08:57)
[2022-12-27] MEDS: ARIPiprazole 15 MG TAB (AbiLIFY) PO SCH (09:59)
[2022-12-27] MEDS: METHENAMINE HIPPURATE 1 GM PO SCH (09:59)
[2022-12-27] MEDS: SENOKOT S TAB PO SCH (09:59)
[2022-12-27] MEDS: lamoTRIgine 100MG TAB PO SCH (09:59)
[2022-12-27] MEDS: ASPIRIN 81MG CHEW TABLET PO SCH (09:59)
[2022-12-27] MEDS: CALCIUM/VITAMIN D 500 MG TAB PO SCH (10:00)
[2022-12-27] MEDS: OLANZapine 5 MG TAB PO SCH (10:00)
[2022-12-27] MEDS: amLODIPine 5 MG TAB PO SCH (10:00)
[2022-12-27] MEDS: LORazepam 0.5 MG TAB PO SCH (10:00)
[2022-12-27] MEDS: ASCORBIC ACID 500 MG TAB PO SCH (10:00)
[2022-12-27] MEDS: GABAPENTIN 100 MG CAP PO SCH (10:00)
[2022-12-27] MEDS: NYSTATIN 100,000 UNITS/GM TOPICAL PWD 15GM TOP SCH (10:01)
== END 2022-12-27 14:09 | disposition home or self-care (01) | DRG 885 ==
LOC: M ED 20:52 → M ED INP 12-21 15:55 → M PSY 12-22 04:09
PROVIDERS: ADMIT Student in an Organized Health Care Education/Training Program; ATTEND Student in an Organized Health Care Education/Training Program
DX: F31.2 Bipolar disorder, current episode manic severe with psychotic features (principal); Z88.8 Allergy status to other drugs, medicaments and biological substances; Z79.899 Other long term (current) drug therapy; Z79.82 Long term (current) use of aspirin; I10 Essential (primary) hypertension; G47.33 Obstructive sleep apnea (adult) (pediatric); E03.9 Hypothyroidism, unspecified; E78.5 Hyperlipidemia, unspecified; Z99.81 Dependence on supplemental oxygen

== ENCOUNTER 2023-01-03 10:31 | Emergency (ER) | payer MEDICARE ==
[~2023-01-03] VITALS: Ht 165.1 cm; Wt 91.5 kg
[~2023-01-03 10:31] MED LIST changes: +ALBU8.5H INH; +AMLO1TAB24 PO; +ARIP1TAB10 PO; +ASCO500T PO; +ASPI81CH48 PO; +ERGO500029 PO; +GABA-1171 PO; +LITH300T2 PO; +LITH600C PO; +METH-855 PO; +OLAN1TAB16 PO; +SENO8.6T10 PO
[2023-01-03 12:36] LABS: HEMATOCRIT 40.9 % (36.0-47.0); HEMOGLOBIN 12.8 g/dl (12.0-15.5); MEAN CORPUSCULAR HEMOGLOBIN 30.2 pg (27.0-33.0); MEAN CORPUSCULAR HGB CONC 31.3 g/dl (32.0-36.5); MEAN CORPUSCULAR VOLUME 96.5 fl (80.0-96.0); PLATELET COUNT, AUTOMATED 249 10^3/uL (150-450); RED BLOOD COUNT 4.24 10^6/uL (4.00-5.40); WHITE BLOOD COUNT 9.3 10^3/uL (4.0-10.0)
[2023-01-03 12:58] LABS: BLOOD UREA NITROGEN 18 MG/DL (9-23); CALCIUM LEVEL 10.2 MG/DL (8.3-10.6); CARBON DIOXIDE LEVEL 29 MMOL/L (20-31); CHLORIDE LEVEL 107 MMOL/L (98-107); CREATININE FOR GFR 0.49 MG/DL (0.55-1.30); GLOMERULAR FILTRATION RATE > 60.0 (>39); GLUCOSE, FASTING 89 MG/DL (74-106); LITHIUM LEVEL 0.75 MMOL/L (1.0-1.20); POTASSIUM SERUM 4.4 MMOL/L (3.5-5.1); SODIUM LEVEL 139 MMOL/L (136-145)
[2023-01-03 17:40] VITALS: BP 142/72; TEMP 96.3; O2SAT 93
== END 2023-01-03 17:48 | disposition home or self-care (01) ==
LOC: EDBD 10:31 → M ED 10:31
DX: I87.2 Venous insufficiency (chronic) (peripheral) (principal); F31.9 Bipolar disorder, unspecified; R00.1 Bradycardia, unspecified; I10 Essential (primary) hypertension; J44.9 Chronic obstructive pulmonary disease, unspecified; E78.5 Hyperlipidemia, unspecified; G47.33 Obstructive sleep apnea (adult) (pediatric); E03.9 Hypothyroidism, unspecified; Z88.8 Allergy status to other drugs, medicaments and biological substances; Z79.52 Long term (current) use of systemic steroids; Z79.82 Long term (current) use of aspirin; Z79.02 Long term (current) use of antithrombotics/antiplatelets; Z79.899 Other long term (current) drug therapy

== ENCOUNTER 2023-02-16 13:29 | Emergency (ER) | payer MEDICARE ==
[~2023-02-16] VITALS: Ht 152.4 cm; Wt 89.5 kg
[~2023-02-16 13:29] MED LIST changes: -GABA-283 PO; +GABA-284 PO
[2023-02-16] MEDS ORDERED: CEPH500C PO (14:31)
[2023-02-16] MEDS ORDERED: CULT10CA4 PO (14:31)
[2023-02-16] MEDS ORDERED: HOME MED LIST COMPLETE! XX SCH (14:35)
[2023-02-16 15:35] LABS: BASO % 0.3 % (0.0-1.0); EOS # 0.6 10^3/uL (0.0-0.5); EOS % 5.9 % (0.0-3.0); HEMATOCRIT 45.8 % (36.0-47.0); HEMOGLOBIN 14.2 g/dl (12.0-15.5); LYMPH # 2.2 10^3/uL (1.5-5.0); LYMPH % 20.6 % (24.0-44.0); MEAN CORPUSCULAR HEMOGLOBIN 29.8 pg (27.0-33.0); MEAN CORPUSCULAR VOLUME 96.2 fl (80.0-96.0); MONO # 0.6 10^3/uL (0.0-0.8); MONO % 5.9 % (2.0-8.0); NEUTROPHILS # 7.1 10^3/uL (1.5-8.5); NEUTROPHILS % 66.9 % (36.0-66.0); PLATELET COUNT, AUTOMATED 315 10^3/uL (150-450); RED BLOOD COUNT 4.76 10^6/uL (4.00-5.40); WHITE BLOOD COUNT 10.6 10^3/uL (4.0-10.0)
[2023-02-16 15:48] LABS: ERYTHROCYTE SEDIMENTATION RATE 8 mm/hr (0-30)
[2023-02-16 16:01] LABS: ETHYL ALCOHOL (ETHANOL) < 0.003 % (0.000-0.010)
[2023-02-16 16:02] LABS: SALICYLATE LEVEL < 3.0 MG/DL (<30)
[2023-02-16 16:03] LABS: ACETAMINOPHEN LEVEL < 2.0 UG/ML (10.0-20.0); ALBUMIN 4.1 G/DL (3.2-5.2); ALKALINE PHOSPHATASE 119 U/L (46-116); ALT/SGPT 21 U/L (7.0-40); AST/SGOT 16 U/L (<34); BILIRUBIN,DIRECT 0.1 MG/DL (<0.4); BILIRUBIN,TOTAL 0.3 MG/DL (0.3-1.2); BLOOD UREA NITROGEN 16 MG/DL (9-23); C REACTIVE PROTEIN QUANTITATIV < 0.40 MG/DL (<1.0); CALCIUM LEVEL 10.3 MG/DL (8.3-10.6); CARBON DIOXIDE LEVEL 30 MMOL/L (20-31); CHLORIDE LEVEL 104 MMOL/L (98-107); CREATININE FOR GFR 0.59 MG/DL (0.55-1.30); GLOMERULAR FILTRATION RATE > 60.0 (>39); GLUCOSE, FASTING 115 MG/DL (74-106); POTASSIUM SERUM 4.3 MMOL/L (3.5-5.1); SODIUM LEVEL 140 MMOL/L (136-145); TOTAL PROTEIN 6.7 G/DL (5.7-8.2)
[2023-02-16 16:05] LABS: LITHIUM LEVEL 0.54 MMOL/L (1.0-1.20); THYROID STIMULATING HORMONE 3.395 uIU/ML (0.55-4.78)
[2023-02-16 16:10] LABS: PROCALCITONIN <0.04 ng/ml
[2023-02-16 18:05] LABS: AMPHETAMINES LEVEL URINE NEGATIVE (NEGATIVE); PHENCYCLIDINE URINE NEGATIVE (NEGATIVE)
[2023-02-16 18:06] LABS: BARBITURATES URINE NEGATIVE (NEGATIVE); BENZODIAZEPINES URINE NEGATIVE (NEGATIVE); CANNABINOIDS URINE NEGATIVE (NEGATIVE); COCAINE METABOLITE URINE NEGATIVE (NEGATIVE); METHADONE URINE NEGATIVE (NEGATIVE); OPIATES URINE NEGATIVE (NEGATIVE)
[2023-02-16] MEDS ORDERED: ACETAMINOPHEN 325 MG TAB PO ONE (21:05)
[2023-02-16] MEDS ORDERED: MOM 30ML SUSPENSION UDC PO PRN (21:30)
[2023-02-16] MEDS ORDERED: MAALOX 30 ML SUSP *UDC PO PRN (21:30)
[2023-02-16] MEDS ORDERED: diphenhydrAMINE 25MG CAP PO PRN (21:30)
[2023-02-16] MEDS: GABAPENTIN 100 MG CAP PO SCH (22:30)
[2023-02-16] MEDS: CEPHALEXIN 500 MG CAP PO SCH (22:30)
[2023-02-16] MEDS: ATORVASTATIN 20 MG TAB PO SCH (22:30)
[2023-02-16] MEDS: lamoTRIgine 100MG TAB PO SCH (22:30)
[2023-02-16] MEDS: QUEtiapine FUMARATE 200 MG TAB PO SCH (22:30)
[2023-02-16] MEDS: ASCORBIC ACID 500 MG TAB PO SCH (22:31)
[2023-02-16] MEDS: LITHIUM CARBONATE 600MG CAP PO SCH (23:31)
[2023-02-17] MEDS: LEVOTHYROXINE 125MCG TABLET (0.125MG) PO SCH (06:00)
[2023-02-17] MEDS: ASCORBIC ACID 500 MG TAB PO SCH ×2 (09:26→20:59)
[2023-02-17] MEDS: ARIPiprazole 15 MG TAB (AbiLIFY) PO SCH (09:26)
[2023-02-17] MEDS: lamoTRIgine 100MG TAB PO SCH ×2 (09:26→20:58)
[2023-02-17] MEDS: GABAPENTIN 100 MG CAP PO SCH ×2 (09:26→20:58)
[2023-02-17] MEDS: CEPHALEXIN 500 MG CAP PO SCH ×4 (09:26→22:30)
[2023-02-17] MEDS: ASPIRIN 81MG CHEW TABLET PO SCH (09:26)
[2023-02-17] MEDS: ACETAMINOPHEN TAB 650MG DOSE (2X325MG) PO PRN ×2 (09:29→20:59)
[2023-02-17] MEDS: amLODIPine 5 MG TAB PO SCH (09:30)
[2023-02-17] MEDS: LITHIUM CARBONATE 600MG CAP PO SCH (20:58)
[2023-02-17] MEDS: ATORVASTATIN 20 MG TAB PO SCH (20:58)
[2023-02-17] MEDS: QUEtiapine FUMARATE 200 MG TAB PO SCH (20:59)
[2023-02-18] MEDS: LEVOTHYROXINE 125MCG TABLET (0.125MG) PO SCH (06:30)
[2023-02-18] MEDS: ARIPiprazole 15 MG TAB (AbiLIFY) PO SCH (08:52)
[2023-02-18] MEDS: ASPIRIN 81MG CHEW TABLET PO SCH (08:52)
[2023-02-18] MEDS: ASCORBIC ACID 500 MG TAB PO SCH ×2 (08:52→21:33)
[2023-02-18] MEDS: GABAPENTIN 100 MG CAP PO SCH ×2 (08:52→21:32)
[2023-02-18] MEDS: lamoTRIgine 100MG TAB PO SCH ×2 (08:52→21:32)
[2023-02-18] MEDS: amLODIPine 5 MG TAB PO SCH (08:52)
[2023-02-18] MEDS: CEPHALEXIN 500 MG CAP PO SCH ×4 (08:54→21:32)
[2023-02-18] MEDS: LITHIUM CARBONATE 600MG CAP PO SCH (21:33)
[2023-02-18] MEDS: ATORVASTATIN 20 MG TAB PO SCH (21:33)
[2023-02-18] MEDS: QUEtiapine FUMARATE 200 MG TAB PO SCH (21:33)
[2023-02-18] MEDS: IBUPROFEN 400MG TAB PO PRN (21:40)
[2023-02-18] MEDS: traZODone 50 MG TAB PO PRN (21:40)
[2023-02-19] MEDS: ACETAMINOPHEN TAB 650MG DOSE (2X325MG) PO PRN ×2 (06:27→21:00)
[2023-02-19] MEDS: LEVOTHYROXINE 125MCG TABLET (0.125MG) PO SCH (06:27)
[2023-02-19] MEDS: lamoTRIgine 100MG TAB PO SCH ×2 (08:36→20:59)
[2023-02-19] MEDS: GABAPENTIN 100 MG CAP PO SCH ×2 (08:36→21:01)
[2023-02-19] MEDS: ARIPiprazole 15 MG TAB (AbiLIFY) PO SCH (08:36)
[2023-02-19] MEDS: ASPIRIN 81MG CHEW TABLET PO SCH (08:36)
[2023-02-19] MEDS: ASCORBIC ACID 500 MG TAB PO SCH ×2 (08:36→21:00)
[2023-02-19 08:37] VITALS: BP 137/63
[2023-02-19] MEDS: amLODIPine 5 MG TAB PO SCH (08:37)
[2023-02-19] MEDS: CEPHALEXIN 500 MG CAP PO SCH ×4 (08:37→20:59)
[2023-02-19] MEDS: IBUPROFEN 400MG TAB PO PRN (18:49)
[2023-02-19] MEDS: QUEtiapine FUMARATE 200 MG TAB PO SCH (21:00)
[2023-02-19] MEDS: traZODone 50 MG TAB PO PRN (21:00)
[2023-02-19] MEDS: ATORVASTATIN 20 MG TAB PO SCH (21:00)
[2023-02-19] MEDS: LITHIUM CARBONATE 600MG CAP PO SCH (21:01)
[2023-02-20] MEDS: LEVOTHYROXINE 125MCG TABLET (0.125MG) PO SCH (05:35)
[2023-02-20] MEDS: IBUPROFEN 400MG TAB PO PRN ×2 (05:39→14:24)
[2023-02-20] MEDS: ARIPiprazole 15 MG TAB (AbiLIFY) PO SCH (09:05)
[2023-02-20] MEDS: lamoTRIgine 100MG TAB PO SCH ×2 (09:05→20:35)
[2023-02-20] MEDS: ASCORBIC ACID 500 MG TAB PO SCH ×2 (09:06→20:35)
[2023-02-20] MEDS: GABAPENTIN 100 MG CAP PO SCH ×2 (09:06→20:35)
[2023-02-20] MEDS: ASPIRIN 81MG CHEW TABLET PO SCH (09:06)
[2023-02-20] MEDS: amLODIPine 5 MG TAB PO SCH (09:06)
[2023-02-20] MEDS: CEPHALEXIN 500 MG CAP PO SCH ×4 (09:06→20:35)
[2023-02-20] MEDS: LITHIUM CARBONATE 600MG CAP PO SCH (20:34)
[2023-02-20] MEDS: traZODone 50 MG TAB PO PRN (20:35)
[2023-02-20] MEDS: QUEtiapine FUMARATE 200 MG TAB PO SCH (20:35)
[2023-02-20] MEDS: ATORVASTATIN 20 MG TAB PO SCH (20:35)
[2023-02-21] MEDS: LEVOTHYROXINE 125MCG TABLET (0.125MG) PO SCH (05:54)
[2023-02-21 06:50] VITALS: BP 144/74; TEMP 98; O2SAT 97
[2023-02-21] MEDS: lamoTRIgine 100MG TAB PO SCH (08:18)
[2023-02-21] MEDS: ARIPiprazole 15 MG TAB (AbiLIFY) PO SCH (08:18)
[2023-02-21] MEDS: GABAPENTIN 100 MG CAP PO SCH (08:18)
[2023-02-21] MEDS: amLODIPine 5 MG TAB PO SCH (08:19)
[2023-02-21] MEDS: ASPIRIN 81MG CHEW TABLET PO SCH (08:19)
[2023-02-21] MEDS: ASCORBIC ACID 500 MG TAB PO SCH (08:19)
[2023-02-21] MEDS: CEPHALEXIN 500 MG CAP PO SCH ×3 (08:19→18:21)
[2023-02-21] MEDS: IBUPROFEN 400MG TAB PO PRN (14:39)
== END 2023-02-21 18:50 | disposition home or self-care (01) ==
LOC: M ED 13:29 → M ED INP 21:29 → UNDOADMIN 21:29 → M ED 02-21 18:50
DX: F31.9 Bipolar disorder, unspecified (principal); E11.9 Type 2 diabetes mellitus without complications; I10 Essential (primary) hypertension; E78.5 Hyperlipidemia, unspecified; F41.9 Anxiety disorder, unspecified; Z88.8 Allergy status to other drugs, medicaments and biological substances; Z79.52 Long term (current) use of systemic steroids; Z79.02 Long term (current) use of antithrombotics/antiplatelets; Z79.899 Other long term (current) drug therapy

== ENCOUNTER → 2023-11-27 | Outpatient (REF) ==
[~2023-11-27] MED LIST changes: +CEPH500C PO; -COUG1LOZ8 PO; +CULT10CA4 PO; -KLON0.5T PO; +KLON0.5T8 PO; +MENT7.6L4 PO
== END ==
LOC: M LAB REF 15:40
DX: R53.1 Weakness (principal)

== ENCOUNTER → 2023-11-28 | Outpatient (REF) | LOC: M LAB LCGH 09:00 | PROVIDERS: ATTEND Nurse Practitioner Family | DX: Z51.81 Encounter for therapeutic drug level monitoring (principal) ==

== ENCOUNTER → 2023-11-29 | Outpatient (REF) | LOC: M LAB LCGH 09:56 | PROVIDERS: ATTEND Nurse Practitioner Family | DX: Z51.81 Encounter for therapeutic drug level monitoring (principal) ==

== ENCOUNTER → 2023-11-30 | Outpatient (REF) | LOC: M LAB LCGH 09:09 | PROVIDERS: ATTEND Nurse Practitioner Family | DX: Z51.81 Encounter for therapeutic drug level monitoring (principal) ==

== ENCOUNTER 2024-05-14 14:01 | Observation (INO) | payer MEDICARE ==
[~2024-05-14] VITALS: Ht 162.6 cm; Wt 80.8 kg
[~2024-05-14 14:01] MED LIST changes: +NYST1POW3; -NYST1POW9
[2024-05-14 15:22] LABS: BASO % 0.4 % (0.0-1.0); EOS # 0.5 10^3/uL (0.0-0.5); EOS % 5.2 % (0.0-3.0); HEMATOCRIT 41.1 % (36.0-47.0); HEMOGLOBIN 13.2 g/dl (12.0-15.5); LYMPH # 1.7 10^3/uL (1.5-5.0); LYMPH % 18.7 % (24.0-44.0); MEAN CORPUSCULAR HEMOGLOBIN 30.1 pg (27.0-33.0); MEAN CORPUSCULAR HGB CONC 32.1 g/dl (32.0-36.5); MEAN CORPUSCULAR VOLUME 93.8 fl (80.0-96.0); MONO # 0.7 10^3/uL (0.0-0.8); MONO % 7.4 % (2.0-8.0); NEUTROPHILS # 6.1 10^3/uL (1.5-8.5); NEUTROPHILS % 67.9 % (36.0-66.0); PLATELET COUNT, AUTOMATED 303 10^3/uL (150-450); RED BLOOD COUNT 4.38 10^6/uL (4.00-5.40)
[2024-05-14 15:37] LABS: INR 0.95; PARTIAL THROMBOPLASTIN TIME 23.8 SECONDS (24.8-34.2)
[2024-05-14 15:44] LABS: CK-MB VALUE MASS 2.1 NG/ML (<3.6); ETHYL ALCOHOL (ETHANOL) 0.004 % (0.000-0.010)
[2024-05-14 15:46] LABS: SALICYLATE LEVEL < 3.0 MG/DL (<30)
[2024-05-14 15:47] LABS: ALBUMIN 3.4 G/DL (3.2-5.2); ALKALINE PHOSPHATASE 127 U/L (35-104); ALT/SGPT 13 U/L (7.0-40); AST/SGOT 13 U/L (<34); BILIRUBIN,DIRECT 0.1 MG/DL (<0.4); BILIRUBIN,TOTAL 0.4 MG/DL (0.3-1.2); BLOOD UREA NITROGEN 12 MG/DL (9-23); CALCIUM LEVEL 9.6 MG/DL (8.3-10.6); CARBON DIOXIDE LEVEL 25 MMOL/L (20-31); CHLORIDE LEVEL 112 MMOL/L (98-107); CPK CREATINE PHOSPHOKINASE 142 U/L (34-145); CREATININE FOR GFR 0.61 MG/DL (0.55-1.30); GLOMERULAR FILTRATION RATE > 60.0 (>32); GLUCOSE, FASTING 92 MG/DL (74-106); MB/CK RELATIVE INDEX 1.47 (< OR =4); POTASSIUM SERUM 4.2 MMOL/L (3.5-5.1); SODIUM LEVEL 141 MMOL/L (136-145); TOTAL PROTEIN 5.6 G/DL (5.7-8.2)
[2024-05-14 15:48] LABS: LITHIUM LEVEL 0.55 MMOL/L (1.0-1.20); THYROID STIMULATING HORMONE 2.344 uIU/ML (0.55-4.78)
[2024-05-14 16:47] LABS: CK-MB VALUE MASS 2.6 NG/ML (<3.6)
[2024-05-14 16:48] LABS: MB/CK RELATIVE INDEX 1.35 (< OR =4)
[2024-05-14] MEDS ORDERED: LEXA1TAB PO (17:28)
[2024-05-14] MEDS ORDERED: LITH150C PO (17:28)
[2024-05-14] MEDS ORDERED: ACET-907 PO (17:28)
[2024-05-14] MEDS ORDERED: LISI2.5T9 PO (17:30)
[2024-05-14] MEDS ORDERED: LEVO112T2 PO (17:30)
[2024-05-14] MEDS ORDERED: VITA500T73 PO (17:31)
[2024-05-14] MEDS ORDERED: MED REC COMMENT (17:32)
[2024-05-14] MEDS ORDERED: HOME MED LIST COMPLETE! XX SCH (17:35)
[2024-05-14] MEDS ORDERED: ALBUTEROL 90 MCG/ACT 8GM HFA INHALER INH PRN (17:40)
[2024-05-14 19:03] LABS: CHOLESTEROL LEVEL 136 MG/DL (<200); CHOLESTEROL RISK RATIO 2.54 (<5); HDL CHOLESTEROL 53.5 MG/DL (>40); LDL CHOLESTEROL 59.1 MG/DL (<100); NON-HDL-C 82.5 MG/DL; TRIGLYCERIDES LEVEL 117 MG/DL (<150)
[2024-05-14 19:30] LABS: HEMOGLOBIN A1c 5.2 % (4.0-6.0)
[2024-05-14 21:16] VITALS: BP 165/65; TEMP 97.2; O2SAT 94
[2024-05-14] MEDS: DOCUSATE SODIUM 100MG CAPSULE PO SCH (22:07)
[2024-05-14] MEDS: LITHIUM CARBONATE 150 MG CAP PO SCH (22:09)
[2024-05-14] MEDS: lamoTRIgine 100MG TAB PO SCH (22:09)
[2024-05-14] MEDS: ASCORBIC ACID 500 MG TAB PO SCH (22:10)
[2024-05-14] MEDS: ARIPiprazole 15 MG TAB (AbiLIFY) PO SCH (22:10)
[2024-05-14] MEDS: ACETAMINOPHEN 325 MG TAB PO PRN (23:58)
[2024-05-15] VITALS: BP 132/60; TEMP 98.2; O2SAT 92
[2024-05-15 04:00] VITALS: BP 140/76; TEMP 98.1; O2SAT 98
[2024-05-15] MEDS: LEVOTHYROXINE 112MCG TABLET (0.112MG) PO SCH (05:27)
[2024-05-15 07:36] VITALS: BP 180/74; TEMP 97.6; O2SAT 93
[2024-05-15] MEDS: ESCITALOPRAM OXALATE 10 MG TAB (LEXAPRO) PO SCH (09:36)
[2024-05-15] MEDS: ATORVASTATIN 20 MG TAB PO SCH (09:36)
[2024-05-15] MEDS: ASPIRIN 81MG CHEW TABLET PO SCH (09:36)
[2024-05-15] MEDS: CYANOCOBALAMIN 500 MCG TAB PO SCH (09:36)
[2024-05-15] MEDS: ENOXAPARIN 40MG/0.4ML SYRINGE (J1650 PER 10MG) SC SCH (09:37)
[2024-05-15 11:37] VITALS: BP 150/66; TEMP 97.3; O2SAT 92
[2024-05-15 20:45] VITALS: BP 144/75; TEMP 98.1; O2SAT 92
[2024-05-16] VITALS (8 sets, daily range): BP systolic 118–137; BP diastolic 61–76; TEMP 97.5–98.1; O2SAT 92–94
[2024-05-17 04:30] VITALS: BP 126/81; TEMP 98.6; O2SAT 92
[2024-05-17] MEDS: ESCITALOPRAM OXALATE 5MG TABLET (LEXAPRO) PO SCH (08:05)
[2024-05-17 09:23] VITALS: BP 152/69
[2024-05-17] MEDS: LIDOCAINE 5% (LIDODERM) PATCH TD SCH (10:59)
[2024-05-17 12:00] VITALS: BP 155/77; TEMP 97.9; O2SAT 92
[2024-05-17 21:00] VITALS: BP 156/75; TEMP 98.1; O2SAT 93
[2024-05-17] MEDS: ACETAMINOPHEN 325 MG TAB PO PRN (22:09)
[2024-05-17] MEDS: RAMELTEON 8 MG TAB (ROZEREM) PO PRN (22:09)
[2024-05-18 04:20] VITALS: BP 132/59; TEMP 98.2; O2SAT 91
[2024-05-18] MEDS: LIDOCAINE 5% (LIDODERM) PATCH TD SCH (17:24)
[2024-05-19 03:43] VITALS: BP 124/54; TEMP 98.8; O2SAT 92
[2024-05-19] MEDS: DICLOFENAC EPOLAMINE 1.3% PATCH TOP SCH (09:54)
[2024-05-19] MEDS: LIDOCAINE 5% (LIDODERM) PATCH TD SCH (09:55)
[2024-05-20 05:01] VITALS: BP 117/71; TEMP 98.1; O2SAT 93
[2024-05-20 20:46] VITALS: BP 124/46; TEMP 97.9; O2SAT 92
[2024-05-21 03:48] VITALS: BP 149/71; TEMP 97.5; O2SAT 91
[2024-05-21] MEDS: LIDOCAINE 5% (LIDODERM) PATCH TD SCH (08:18)
[2024-05-21 20:01] VITALS: BP 135/72; TEMP 97.9; O2SAT 98
[2024-05-22 03:24] VITALS: BP 124/64; TEMP 97.7; O2SAT 94
[2024-05-23 04:00] VITALS: BP 140/66; TEMP 98.1; O2SAT 93
[2024-05-23] MEDS: guaiFENesin DM LIQ 10ML UD PO PRN (15:24)
[2024-05-24 03:25] VITALS: BP 123/74; TEMP 97.9; O2SAT 93
[2024-05-24 09:39] VITALS: BP 160/95
[2024-05-25 03:30] VITALS: BP 126/51; TEMP 98.2; O2SAT 95
[2024-05-26 04:16] VITALS: BP 121/62; TEMP 98.1; O2SAT 94
[2024-05-27 04:00] VITALS: BP 132/64; TEMP 98.1; O2SAT 96
[2024-05-29 04:00] VITALS: BP 121/60; TEMP 97.9; O2SAT 94
[2024-05-31 04:00] VITALS: BP 124/67; TEMP 97.5; O2SAT 95
[2024-06-01 03:00] VITALS: BP 114/56; TEMP 98.2; O2SAT 94
[2024-06-02 05:22] VITALS: BP 122/60; TEMP 98.1; O2SAT 96
[2024-06-02] MEDS: OLANZapine 2.5MG TABLET PO PRN (10:37)
[2024-06-02] MEDS: ARIPiprazole 10 MG TAB PO SCH (21:05)
[2024-06-04 04:00] VITALS: BP 112/52; TEMP 98.1; O2SAT 95
[2024-06-05 04:00] VITALS: BP 148/63; TEMP 97.9; O2SAT 96
[2024-06-06 04:00] VITALS: BP 124/70; TEMP 97.7; O2SAT 93
[2024-06-07 06:08] VITALS: BP 126/68; TEMP 97.9; O2SAT 99
[2024-06-07 20:00] VITALS: BP 116/64; TEMP 96.6; O2SAT 97
[2024-06-07] MEDS ORDERED: PILL CUTTER 1 EACH XX PRN (20:40)
[2024-06-07] MEDS: OLANZapine ORAL DISINTEGRATING TAB 5MG PO ONE (20:48)
[2024-06-07 21:18] LABS: BASO % 0.3 % (0.0-1.0); EOS # 0.6 10^3/uL (0.0-0.5); EOS % 5.2 % (0.0-3.0); HEMOGLOBIN 14.4 g/dl (12.0-15.5); LYMPH # 2.6 10^3/uL (1.5-5.0); MEAN CORPUSCULAR HEMOGLOBIN 30.1 pg (27.0-33.0); MEAN CORPUSCULAR VOLUME 93.9 fl (80.0-96.0); MONO # 0.8 10^3/uL (0.0-0.8); MONO % 6.9 % (2.0-8.0); NEUTROPHILS # 8.1 10^3/uL (1.5-8.5); PLATELET COUNT, AUTOMATED 367 10^3/uL (150-450); RED BLOOD COUNT 4.79 10^6/uL (4.00-5.40); WHITE BLOOD COUNT 12.2 10^3/uL (4.0-10.0)
[2024-06-07 21:49] LABS: ALBUMIN 3.8 G/DL (3.2-5.2); ALKALINE PHOSPHATASE 115 U/L (35-104); ALT/SGPT 25 U/L (7.0-40); AST/SGOT 11 U/L (<34); BILIRUBIN,TOTAL 0.4 MG/DL (0.3-1.2); BLOOD UREA NITROGEN 28 MG/DL (9-23); CALCIUM LEVEL 10.6 MG/DL (8.3-10.6); CARBON DIOXIDE LEVEL 25 MMOL/L (20-31); CHLORIDE LEVEL 105 MMOL/L (98-107); CREATININE FOR GFR 0.78 MG/DL (0.55-1.30); GLOMERULAR FILTRATION RATE > 60.0 (>32); GLUCOSE, FASTING 108 MG/DL (74-106); MAGNESIUM LEVEL 2.2 MG/DL (1.8-2.4); POTASSIUM SERUM 4.9 MMOL/L (3.5-5.1); SODIUM LEVEL 138 MMOL/L (136-145); TOTAL PROTEIN 6.5 G/DL (5.7-8.2)
[2024-06-08 04:00] VITALS: BP 113/62; TEMP 97.7; O2SAT 91
[2024-06-08] MEDS: OLANZapine ORAL DISINTEGRATING TAB 5MG PO PRN (09:42)
[2024-06-09 04:00] VITALS: BP 127/58; TEMP 97.9; O2SAT 94
[2024-06-10 04:00] VITALS: BP 142/87; TEMP 97.9
[2024-06-11 03:39] VITALS: BP 118/59; TEMP 98.1; O2SAT 96
[2024-06-12 04:59] VITALS: BP 116/62; TEMP 98.1; O2SAT 97
[2024-06-12 06:00] VITALS: BP 122/59; TEMP 98.1; O2SAT 95
[2024-06-13 04:40] VITALS: BP 155/68; TEMP 98.7; O2SAT 94
[2024-06-14 04:00] VITALS: BP 124/59; TEMP 97.7; O2SAT 95
[2024-06-15 04:00] VITALS: BP 121/86; TEMP 98.1; O2SAT 96
[2024-06-16 04:21] VITALS: BP 117/51; TEMP 98.1; O2SAT 94
[2024-06-17 04:00] VITALS: BP 108/37; TEMP 98.1; O2SAT 93
[2024-06-17 04:55] VITALS: BP 116/72; TEMP 98.1; O2SAT 94
[2024-06-18 04:00] VITALS: BP 100/50; TEMP 98.2; O2SAT 93
[2024-06-19 04:00] VITALS: BP 114/43; TEMP 98.6; O2SAT 95
[2024-06-20 04:21] VITALS: BP 90/44; TEMP 98.2; O2SAT 93
[2024-06-20 12:00] VITALS: BP 135/62
[2024-06-21 04:00] VITALS: BP 134/66; TEMP 98.1; O2SAT 95
[2024-06-22 04:02] VITALS: BP 112/55; TEMP 98.1; O2SAT 92
[2024-06-23 04:00] VITALS: BP 121/56; TEMP 98.2; O2SAT 96
[2024-06-24 03:20] VITALS: BP 112/64; TEMP 98.6; O2SAT 92
[2024-06-25 06:36] VITALS: BP 119/64; TEMP 98.1; O2SAT 94
[2024-06-26 06:00] VITALS: BP 119/93; TEMP 97.9; O2SAT 97
[2024-06-27 04:00] VITALS: BP 120/57; TEMP 98.2; O2SAT 93
[2024-06-28 03:30] VITALS: BP 142/86; TEMP 97.9; O2SAT 94
[2024-06-29 05:30] VITALS: BP 123/67; TEMP 98.2; O2SAT 93
[2024-06-30 03:30] VITALS: BP 106/56; TEMP 98.4; O2SAT 93
[2024-07-01 04:00] VITALS: BP 120/65; TEMP 98.4; O2SAT 96
[2024-07-01 17:41] LABS: APPEARANCE, URINE HAZY (CLEAR); BACTERIA, URINE AUTO 1+ (NEGATIVE); BILIRUBIN, URINE AUTO NEGATIVE (NEGATIVE); BLOOD, URINE BLOOD NEGATIVE (NEGATIVE); COLOR, URINE YELLOW (YELLOW); GLUCOSE, URINE (UA) AUTO NEGATIVE (NEGATIVE); KETONE, URINE AUTO NEGATIVE (NEGATIVE); LEUKOCYTE ESTERASE, URINE AUTO 2+ (NEGATIVE); MUCUS, URINE SMALL (NEGATIVE); NITRITE, URINE AUTO POSITIVE (NEGATIVE); PROTEIN, URINE AUTO NEGATIVE (NEGATIVE); RBC, URINE AUTO 2 /HPF (0-3); SPECIFIC GRAVITY URINE AUTO 1.015 (1.002-1.035); SQUAMOUS EPITHELIAL CELL UR AU 5 /HPF (0-6); UROBILINOGEN, URINE AUTO 0.2 mg/dL (0.0-2.0); WBC, URINE AUTO 68 /HPF (0-3)
[2024-07-02 04:55] VITALS: BP 126/77; TEMP 98.6; O2SAT 92
[2024-07-03 04:00] VITALS: BP 136/65; TEMP 98.1; O2SAT 92
[2024-07-04 04:00] VITALS: BP 110/68; TEMP 98.1; O2SAT 96
[2024-07-04] MEDS: NITROFURANTOIN (MACROBID) 100 MG CAP PO SCH (20:19)
[2024-07-07 04:08] VITALS: BP 136/59; TEMP 98.2; O2SAT 95
[2024-07-09 03:41] VITALS: BP 134/60; TEMP 97.7
[2024-07-09 10:48] LABS: KETONE, URINE AUTO RFX NEGATIVE (NEGATIVE); LEUKOCYTE ESTERASE UR AUTO RFX NEGATIVE (NEGATIVE); MUCUS, URINE RFX SMALL (NEGATIVE); NITRITE, URINE AUTO RFX NEGATIVE (NEGATIVE); RBC, URINE AUTO RFX 0 /HPF (0-3); SQUAM EPITHELIAL CELL UR AURFX 0 /HPF (0-6); WBC, URINE AUTO RFX 3 /HPF (0-3)
[2024-07-10 03:23] VITALS: BP 132/57; TEMP 97.2; O2SAT 93
[2024-07-11 05:07] VITALS: BP 120/55; TEMP 97.3; O2SAT 93
[2024-07-12 03:10] VITALS: BP 121/73; TEMP 98.6; O2SAT 92
[2024-07-13 03:47] VITALS: BP 124/45; TEMP 98.4; O2SAT 91
[2024-07-14 03:20] VITALS: BP 126/51; TEMP 98.8; O2SAT 96
[2024-07-15 03:32] VITALS: BP 151/73; TEMP 98.6; O2SAT 95
[2024-07-16 03:25] VITALS: BP 131/62; TEMP 98.1; O2SAT 94
[2024-07-17 04:50] VITALS: BP 109/39; TEMP 98.1; O2SAT 92
[2024-07-18 03:42] VITALS: BP 122/48; TEMP 97.5; O2SAT 93
[2024-07-19 05:54] VITALS: BP 132/92; TEMP 97.9; O2SAT 95
[2024-07-19 18:32] LABS: KETONE, URINE AUTO RFX NEGATIVE (NEGATIVE); MUCUS, URINE RFX SMALL (NEGATIVE); RBC, URINE AUTO RFX 0 /HPF (0-3); SQUAM EPITHELIAL CELL UR AURFX 0 /HPF (0-6)
[2024-07-19 18:35] LABS: LEUKOCYTE ESTERASE UR AUTO RFX 1+ (NEGATIVE); NITRITE, URINE AUTO RFX POSITIVE (NEGATIVE); WBC, URINE AUTO RFX 20 /HPF (0-3)
[2024-07-19] MEDS: NITROFURANTOIN (MACROBID) 100 MG CAP PO SCH (21:43)
[2024-07-20 06:53] VITALS: BP 105/75; TEMP 98.2; O2SAT 96
[2024-07-21 05:48] VITALS: BP 110/62; TEMP 98.2; O2SAT 94
[2024-07-22 04:50] VITALS: BP 107/56; TEMP 98.1; O2SAT 93
[2024-07-23 03:20] VITALS: BP 96/46; TEMP 97.9; O2SAT 96
[2024-07-23 04:00] VITALS: BP 96/42
[2024-07-23 07:05] VITALS: BP 124/63
[2024-07-24 03:15] VITALS: BP 140/52; TEMP 98.4; O2SAT 96
[2024-07-25 05:04] VITALS: BP 119/51; TEMP 98.1; O2SAT 92
[2024-07-26 04:30] VITALS: BP 136/62; TEMP 98.6; O2SAT 91
[2024-07-27 03:40] VITALS: BP 139/56; TEMP 98.6; O2SAT 92
[2024-07-28 06:07] VITALS: BP 130/59; TEMP 97.9; O2SAT 94
[2024-07-29 05:47] VITALS: BP 130/56; TEMP 97.9
[2024-07-30 05:18] VITALS: BP 125/52; TEMP 98.8; O2SAT 93
[2024-07-31 05:00] VITALS: BP 135/60; TEMP 98.6; O2SAT 91
[2024-08-01 03:10] VITALS: BP 133/60; TEMP 98.6; O2SAT 96
[2024-08-02 05:41] VITALS: BP 134/61; TEMP 98.2; O2SAT 92
[2024-08-03 05:20] VITALS: BP 117/50; TEMP 98.6; O2SAT 90
[2024-08-03 12:02] LABS: BASO % 0.4 % (0.0-1.0); EOS # 0.4 10^3/uL (0.0-0.5); EOS % 4.9 % (0.0-3.0); HEMATOCRIT 39.9 % (36.0-47.0); HEMOGLOBIN 12.6 g/dl (12.0-15.5); LYMPH # 1.7 10^3/uL (1.5-5.0); LYMPH % 22.9 % (24.0-44.0); MEAN CORPUSCULAR HEMOGLOBIN 30.2 pg (27.0-33.0); MEAN CORPUSCULAR HGB CONC 31.6 g/dl (32.0-36.5); MEAN CORPUSCULAR VOLUME 95.7 fl (80.0-96.0); MONO # 0.5 10^3/uL (0.0-0.8); MONO % 6.8 % (2.0-8.0); NEUTROPHILS # 4.8 10^3/uL (1.5-8.5); NEUTROPHILS % 64.6 % (36.0-66.0); PLATELET COUNT, AUTOMATED 265 10^3/uL (150-450); RED BLOOD COUNT 4.17 10^6/uL (4.00-5.40); WHITE BLOOD COUNT 7.5 10^3/uL (4.0-10.0)
[2024-08-03 12:32] LABS: BLOOD UREA NITROGEN 25 MG/DL (9-23); CALCIUM LEVEL 9.6 MG/DL (8.3-10.6); CARBON DIOXIDE LEVEL 26 MMOL/L (20-31); CHLORIDE LEVEL 109 MMOL/L (98-107); CREATININE FOR GFR 0.65 MG/DL (0.55-1.30); GLOMERULAR FILTRATION RATE > 60.0 (>32); GLUCOSE, FASTING 102 MG/DL (74-106); SODIUM LEVEL 142 MMOL/L (136-145)
[2024-08-03] MEDS: RIVAROXABAN 10MG TAB (XARELTO) PO SCH (18:16)
[2024-08-04 03:50] VITALS: BP 133/58; TEMP 98.1; O2SAT 91
[2024-08-05 05:30] VITALS: BP 143/62; TEMP 98.4; O2SAT 92
[2024-08-05] MEDS: oxyBUTYnin 5 MG TAB PO SCH (12:37)
[2024-08-06 06:08] VITALS: BP 118/50; TEMP 97.9; O2SAT 93
[2024-08-07 03:37] VITALS: BP 101/42; TEMP 98.1; O2SAT 93
[2024-08-07 06:49] VITALS: BP 139/59
[2024-08-08 04:00] VITALS: BP 107/56; TEMP 98.2; O2SAT 95
[2024-08-09 04:37] VITALS: BP 105/52; TEMP 98.1; O2SAT 92
[2024-08-10 04:19] VITALS: BP 123/53; TEMP 98.4; O2SAT 91
[2024-08-10] MEDS: NEOSPORIN TOP OINT 15GM TOP SCH (12:11)
[2024-08-11 03:52] VITALS: BP 126/54; TEMP 97.9; O2SAT 91
[2024-08-11] MEDS: MOM 30ML SUSPENSION UDC PO PRN (06:48)
[2024-08-12 04:42] VITALS: BP 135/59; TEMP 98.1; O2SAT 93
[2024-08-13 04:10] VITALS: BP 127/58; TEMP 98.2; O2SAT 94
[2024-08-14 04:39] VITALS: BP 130/62; TEMP 97.9; O2SAT 92
[2024-08-14 04:44] VITALS: BP 121/57; TEMP 97.9; O2SAT 93
[2024-08-15 04:30] VITALS: BP 115/54; TEMP 98.1; O2SAT 92
[2024-08-16 03:29] VITALS: BP 130/56; TEMP 98.2; O2SAT 92
[2024-08-17 04:00] VITALS: BP 130/45; TEMP 98.1; O2SAT 89
[2024-08-18 03:40] VITALS: BP 142/59; TEMP 98.6; O2SAT 92
[2024-08-19 03:10] VITALS: BP 140/54; TEMP 98.6; O2SAT 92
[2024-08-21 03:20] VITALS: BP 123/63; TEMP 98.8; O2SAT 95
[2024-08-22 04:00] VITALS: BP 130/54; TEMP 98.6; O2SAT 95
[2024-08-23 03:58] VITALS: BP 146/67; TEMP 97.7; O2SAT 96
[2024-08-24 04:08] VITALS: BP 119/48; TEMP 98.1; O2SAT 92
[2024-08-25 06:31] VITALS: BP 125/46; TEMP 98.1; O2SAT 90
[2024-08-25 12:00] VITALS: BP 115/48; TEMP 98.2; O2SAT 94
[2024-08-26 03:42] VITALS: BP 123/51; TEMP 98.2; O2SAT 92
[2024-08-27 05:31] VITALS: BP 116/54; TEMP 98.2; O2SAT 94
[2024-08-27 08:00] VITALS: BP 129/66; TEMP 98.6; O2SAT 97
[2024-08-28 04:09] VITALS: BP 127/67; TEMP 97.5; O2SAT 93
[2024-08-29 05:30] VITALS: BP 132/62; TEMP 98.6; O2SAT 91
[2024-08-30 04:05] VITALS: BP 135/64; TEMP 97.8; O2SAT 96
[2024-08-30 09:23] VITALS: BP 137/64
[2024-08-31 05:00] VITALS: BP 106/42; TEMP 97.7; O2SAT 92
[2024-09-01 03:40] VITALS: BP 111/48; TEMP 98.1; O2SAT 92
[2024-09-01 12:14] VITALS: BP 124/72; TEMP 97.5; O2SAT 94
[2024-09-02 04:01] VITALS: BP 114/61; TEMP 98.6; O2SAT 92
[2024-09-03 05:06] VITALS: BP 100/45; TEMP 97.7; O2SAT 90
[2024-09-03] MEDS: ESCITALOPRAM OXALATE 5MG TABLET (LEXAPRO) PO SCH (10:06)
[2024-09-04 03:11] VITALS: BP 130/50; TEMP 98.1; O2SAT 92
[2024-09-05 01:57] VITALS: BP 120/47; TEMP 98.1; O2SAT 90
[2024-09-05 06:04] LABS: KETONE, URINE AUTO RFX NEGATIVE (NEGATIVE); MUCUS, URINE RFX SMALL (NEGATIVE); RBC, URINE AUTO RFX TNTC /HPF (0-3); SQUAM EPITHELIAL CELL UR AURFX 1 /HPF (0-6)
[2024-09-05 06:05] LABS: LEUKOCYTE ESTERASE UR AUTO RFX 3+ (NEGATIVE); NITRITE, URINE AUTO RFX POSITIVE (NEGATIVE); WBC, URINE AUTO RFX TNTC /HPF (0-3)
[2024-09-05] MEDS: CEFDINIR 300 MG CAP (OMNICEF) PO SCH (09:52)
[2024-09-06 03:35] VITALS: BP 118/46; TEMP 98.1; O2SAT 91
[2024-09-07 01:57] VITALS: BP 129/57; TEMP 98.1; O2SAT 91
[2024-09-08 04:20] VITALS: BP 104/50; TEMP 97.7; O2SAT 93
[2024-09-09 04:49] VITALS: BP 124/54; TEMP 98.1; O2SAT 91
[2024-09-10 06:01] VITALS: BP 126/53; TEMP 97.9; O2SAT 91
[2024-09-10] MEDS: ESCITALOPRAM OXALATE 10 MG TAB (LEXAPRO) PO SCH (08:20)
[2024-09-11 03:53] VITALS: BP 120/45; TEMP 97.7; O2SAT 90
[2024-09-11 10:19] LABS: BASO % 0.3 % (0.0-1.0); EOS # 0.3 10^3/uL (0.0-0.5); EOS % 2.7 % (0.0-3.0); HEMATOCRIT 43.9 % (36.0-47.0); HEMOGLOBIN 14.3 g/dl (12.0-15.5); LYMPH # 1.9 10^3/uL (1.5-5.0); LYMPH % 18.9 % (24.0-44.0); MEAN CORPUSCULAR HEMOGLOBIN 30.2 pg (27.0-33.0); MEAN CORPUSCULAR HGB CONC 32.6 g/dl (32.0-36.5); MEAN CORPUSCULAR VOLUME 92.6 fl (80.0-96.0); MONO # 0.5 10^3/uL (0.0-0.8); MONO % 5.3 % (2.0-8.0); NEUTROPHILS # 7.4 10^3/uL (1.5-8.5); NEUTROPHILS % 72.4 % (36.0-66.0); PLATELET COUNT, AUTOMATED 275 10^3/uL (150-450); RED BLOOD COUNT 4.74 10^6/uL (4.00-5.40); WHITE BLOOD COUNT 10.2 10^3/uL (4.0-10.0)
[2024-09-11 10:41] LABS: BLOOD UREA NITROGEN 18 MG/DL (9-23); CALCIUM LEVEL 9.7 MG/DL (8.3-10.6); CARBON DIOXIDE LEVEL 26 MMOL/L (20-31); CHLORIDE LEVEL 109 MMOL/L (98-107); CREATININE FOR GFR 0.64 MG/DL (0.55-1.30); GLOMERULAR FILTRATION RATE > 60.0 (>32); GLUCOSE, FASTING 120 MG/DL (74-106); POTASSIUM SERUM 4.5 MMOL/L (3.5-5.1); SODIUM LEVEL 141 MMOL/L (136-145)
[2024-09-11 11:49] LABS: PROCALCITONIN 0.04 ng/ml
[2024-09-12 04:45] VITALS: BP 116/46; TEMP 97.9; O2SAT 91
[2024-09-13 03:59] VITALS: BP 109/54; TEMP 97.9; O2SAT 93
[2024-09-14 05:49] VITALS: BP 156/63; TEMP 98.1; O2SAT 93
[2024-09-15 03:21] VITALS: BP 99/46; TEMP 98.1; O2SAT 92
[2024-09-16 04:47] VITALS: BP 110/57; TEMP 98.1; O2SAT 91
[2024-09-16 21:00] VITALS: BP 106/49; TEMP 97.7; O2SAT 94
[2024-09-17 10:44] VITALS: BP 106/50; TEMP 98.1; O2SAT 94
[2024-09-17 22:00] VITALS: BP 111/69; TEMP 98.2; O2SAT 96
[2024-09-18 05:28] VITALS: BP 133/57; TEMP 97.9; O2SAT 93
[2024-09-19 04:00] VITALS: BP 128/55; TEMP 98.4; O2SAT 95
[2024-09-20 05:39] VITALS: BP 122/53; TEMP 97.7; O2SAT 93
[2024-09-21 04:02] VITALS: BP 122/53; TEMP 97.7; O2SAT 95
[2024-09-22 03:40] VITALS: BP 115/47; TEMP 97.7; O2SAT 94
[2024-09-23 05:00] VITALS: BP 117/58; TEMP 98.1; O2SAT 93
[2024-09-24 04:39] VITALS: BP 125/59; TEMP 98.6; O2SAT 93
[2024-09-24] MEDS: ESCITALOPRAM OXALATE 10 MG TAB (LEXAPRO) PO ONE (11:28)
[2024-09-25 05:28] VITALS: BP 110/48; TEMP 97.7; O2SAT 95
[2024-09-25] MEDS: ESCITALOPRAM OXALATE 10 MG TAB (LEXAPRO) PO SCH (21:31)
[2024-09-26 05:01] VITALS: BP 134/63; TEMP 98.1; O2SAT 94
[2024-09-27 06:09] VITALS: BP 123/54; TEMP 98.1; O2SAT 94
[2024-09-28 03:32] VITALS: BP 116/49; TEMP 97.7; O2SAT 93
[2024-09-29 05:50] VITALS: BP 141/47; TEMP 98.4; O2SAT 91
[2024-09-30 04:00] VITALS: BP 130/58; TEMP 98.2; O2SAT 92
[2024-10-01 04:10] VITALS: BP_SYST 115; BP_SYST 136; BP_DIAS 51; BP_DIAS 87; TEMP 97.5; O2SAT 92
[2024-10-02 03:28] VITALS: BP 123/62; TEMP 98.2; O2SAT 93
[2024-10-03 06:19] VITALS: BP 119/43; TEMP 97.9; O2SAT 93
[2024-10-04 05:30] VITALS: BP 138/64; TEMP 97.9; O2SAT 94
[2024-10-05 04:36] VITALS: BP 129/68; TEMP 97.7; O2SAT 93
[2024-10-06 03:30] VITALS: BP 106/46; TEMP 97.9; O2SAT 92
[2024-10-06 04:05] VITALS: BP 111/48
[2024-10-07 03:50] VITALS: BP 115/91; TEMP 97.9; O2SAT 92
[2024-10-08 06:23] VITALS: BP 104/40; TEMP 98.4; O2SAT 93
[2024-10-09 04:20] VITALS: BP 141/69; TEMP 98.8; O2SAT 97
[2024-10-10 04:49] VITALS: BP 122/62; TEMP 98.1; O2SAT 94
[2024-10-11 03:35] VITALS: BP 125/55; TEMP 98.1; O2SAT 93
[2024-10-11 09:03] VITALS: BP 111/57
[2024-10-12 05:46] VITALS: BP 108/56; TEMP 99.3; O2SAT 93
[2024-10-12 08:41] VITALS: BP 93/40
[2024-10-12 08:47] VITALS: TEMP 100.4
[2024-10-12] MEDS: NS (Normal Saline) 0.9% 1,000 ML IV ONE (09:28)
[2024-10-12] MEDS: CEFDINIR 300 MG CAP (OMNICEF) PO SCH (09:39)
[2024-10-12] MEDS: guaiFENesin ER TABLET 600 MG TAB PO SCH (09:39)
[2024-10-12] MEDS: BENZONATATE 100MG CAPSULE PO SCH (09:39)
[2024-10-12] MEDS: AZITHROMYCIN 250MG TABLET PO SCH (10:51)
[2024-10-12] MEDS: predniSONE 20 MG TAB PO SCH (10:51)
[2024-10-12 10:55] VITALS: BP 118/48; TEMP 98.6; O2SAT 92
[2024-10-12] MEDS: NYSTATIN 100,000 UNITS/GM TOPICAL PWD 15GM TOP SCH (11:18)
[2024-10-12 12:15] VITALS: TEMP 98.8
[2024-10-12 15:14] VITALS: TEMP 98.9
[2024-10-12] MEDS: CLOTRIMAZOLE 1% VAG CR 45 GM PV SCH (20:31)
[2024-10-13 03:40] VITALS: BP 113/53; TEMP 98.1; O2SAT 91
[2024-10-14 03:59] VITALS: BP 115/53; TEMP 98.4; O2SAT 92
[2024-10-14 05:32] LABS: BASO % 0.2 % (0.0-1.0); EOS # 0.2 10^3/uL (0.0-0.5); EOS % 1.2 % (0.0-3.0); HEMATOCRIT 36.9 % (36.0-47.0); HEMOGLOBIN 11.9 g/dl (12.0-15.5); LYMPH # 1.7 10^3/uL (1.5-5.0); LYMPH % 11.8 % (24.0-44.0); MEAN CORPUSCULAR HEMOGLOBIN 29.8 pg (27.0-33.0); MEAN CORPUSCULAR HGB CONC 32.2 g/dl (32.0-36.5); MEAN CORPUSCULAR VOLUME 92.3 fl (80.0-96.0); MONO # 0.9 10^3/uL (0.0-0.8); MONO % 5.9 % (2.0-8.0); NEUTROPHILS # 11.6 10^3/uL (1.5-8.5); NEUTROPHILS % 79.9 % (36.0-66.0); PLATELET COUNT, AUTOMATED 237 10^3/uL (150-450); WHITE BLOOD COUNT 14.6 10^3/uL (4.0-10.0)
[2024-10-15 04:13] VITALS: BP 113/53; TEMP 98.4; O2SAT 90
[2024-10-16 05:00] VITALS: BP 109/56; TEMP 97.9; O2SAT 92
[2024-10-17 03:12] VITALS: BP 105/45; TEMP 98.1; O2SAT 92
[2024-10-17] MEDS ORDERED: LEXA1TAB PO (07:20)
[2024-10-17] MEDS ORDERED: XARE10TA PO (07:20)
[2024-10-17] MEDS ORDERED: RAME8TAB2 PO (07:20)
[2024-10-17] MEDS ORDERED: OXYB5TAB14 PO (07:20)
[2024-10-17] MEDS ORDERED: ABIL10TA9 PO (07:20)
[2024-10-17] MEDS ORDERED: LISI10TA22 PO (07:20)
[2024-10-17] MEDS ORDERED: LIDO5TD TD (07:20)
[2024-10-17 09:32] VITALS: BP 110/56
== END 2024-10-17 12:10 ==
LOC: EDBD 14:01 → M ED 14:01 → INTOOBSV 17:39 → M ED INP 17:39 → M PCU 21:15 → M MSPAV 05-15 11:08
PROVIDERS: ADMIT Student in an Organized Health Care Education/Training Program; ATTEND General Practice
DX: M62.81 Muscle weakness (generalized) (principal); R29.6 Repeated falls; R54 Age-related physical debility; B97.81 Human metapneumovirus as the cause of diseases classified elsewhere; R00.1 Bradycardia, unspecified; N39.0 Urinary tract infection, site not specified; B96.1 Klebsiella pneumoniae [K. pneumoniae] as the cause of diseases classified elsewhere; L85.1 Acquired keratosis [keratoderma] palmaris et plantaris; I10 Essential (primary) hypertension; G47.33 Obstructive sleep apnea (adult) (pediatric); J44.9 Chronic obstructive pulmonary disease, unspecified; F32.A Depression, unspecified; Z86.73 Personal history of transient ischemic attack (TIA), and cerebral infarction without residual deficits; E03.9 Hypothyroidism, unspecified; E78.5 Hyperlipidemia, unspecified; F31.9 Bipolar disorder, unspecified; Z79.82 Long term (current) use of aspirin; Z79.899 Other long term (current) drug therapy